=== PATIENT | male | born 1960 | race Caucasian/White ===

== ENCOUNTER 2016-06-07 08:45 | Emergency (ER) | payer OTHER ==
[~2016-06-07] VITALS: Ht 177.8 cm; Wt 113.4 kg
[~2016-06-07 08:45] MED LIST: ATARAX25 MG PO; BACTRIM DS 8001 TA1 PO; BP MED; FLEXERIL5 MG PO; FLOMAX0.4 MG PO; FLONASE 0.05% 121 EA NAS; LISINOPRIL20 MG PO; MEDROL DOSEPAK4 MG PO; MOTRIN800 MG PO; PREDNICOT20 MG PO; ULTRAM50 MG PO; VICODIN 5/500 505 MG PO; VICODIN 500 MG-1 TAB PO; VOLTAREN50 M1 PO
[2016-06-07 09:04] VITALS: BP 145/85
[2016-06-07] MEDS ORDERED: PENICILLIN-VK500 MG PO (09:18)
[2016-06-07] MEDS ORDERED: PREDNISONE10 MG PO (09:18)
[2016-06-07] MEDS ORDERED: Peridex 473 ML473 ML PO (09:28)
== END 2016-06-07 09:54 | disposition home or self-care (01) ==
LOC: ED 08:45
DX: K08.89 Other specified disorders of teeth and supporting structures (principal); L40.9 Psoriasis, unspecified; F17.200 Nicotine dependence, unspecified, uncomplicated; Z88.6 Allergy status to analgesic agent; Z79.899 Other long term (current) drug therapy

== ENCOUNTER 2021-08-18 17:47 | Emergency (ER) | payer OTHER ==
[~2021-08-18] VITALS: Ht 177.8 cm; Wt 108.4 kg
[~2021-08-18 17:47] MED LIST changes: +PENICILLIN-VK500 MG PO; +PREDNISONE10 MG PO; +Peridex 473 ML473 ML PO
[2021-08-18 17:55] VITALS: BP 128/73
[2021-08-18 18:21] LABS: BASO # 0.1 10*3/uL (0.0-0.1); BASO % 0.4 % (0.0-1.0); EOS # 0.1 10*3/uL (0.0-0.4); EOS % 0.8 % (1.0-4.0); HEMATOCRIT 46.5 % (42.0-52.0); LYMPH # 2.1 10*3/uL (1.3-4.4); LYMPH % 14.9 % (27.0-41.0); MEAN CELL VOLUME 91.5 fl (80.0-94.0); MEAN CORPUSCULAR HGB 31.3 pg (27.0-31.0); MEAN CORPUSCULAR HGB CONC 34.2 g/dl (33.0-37.0); MEAN PLATELET VOLUME 9.6 fl (9.6-12.3); MONO # 1.2 10*3/uL (0.1-1.0); MONO % 8.7 % (3.0-9.0); NEUT # 10.7 10*3/uL (2.3-7.9); NEUT % 74.9 % (47.0-73.0); PLATELET COUNT AUTOMATED 288 10*3/uL (130-400); RED BLOOD COUNT 5.08 10*6/uL (4.50-5.90); RED CELL DISTRI WIDTH 12.7 % (0-14.5); WHITE BLOOD COUNT 14.3 10*3/uL (4.8-10.8)
[2021-08-18 18:40] LABS: ALKALINE PHOSPHATASE 64 U/L (45-117); BUN 19 mg/dl (7-24); CHLORIDE 108 mmol/L (98-107); CREATININE 0.89 mg/dL (0.70-1.30); LIPASE 69 U/L (73-393); POTASSIUM 3.8 mmol/L (3.5-5.1); SGOT/AST 14 IU/L (3-35); SGPT/ALT 15 U/L (12-78); SODIUM 138 mmol/L (136-145); TOTAL PROTEIN 7.7 gm/dL (6.4-8.2)
[2021-08-18 18:51] LABS: ACT PARTIAL THROMBO TIME 33.9 SECONDS (20.0-32.1)
[2021-08-18] MEDS ORDERED: VIBRAMYCIN100 MG PO (21:41)
[2021-08-18] MEDS ORDERED: PREDNISONE20 M1 PO (21:41)
== END 2021-08-18 21:15 | disposition home or self-care (01) ==
LOC: ED 17:47
PROVIDERS: Emergency Medicine
DX: J45.901 Unspecified asthma with (acute) exacerbation (principal); Z98.890 Other specified postprocedural states; Z79.899 Other long term (current) drug therapy; Z88.5 Allergy status to narcotic agent

== ENCOUNTER 2021-12-04 10:34 | Emergency (ER) | payer OTHER ==
[~2021-12-04] VITALS: Ht 177.8 cm; Wt 113.4 kg
[~2021-12-04 10:34] MED LIST changes: +PREDNISONE20 M1 PO; +VIBRAMYCIN100 MG PO
[2021-12-04 10:46] VITALS: BP 119/73
[2021-12-04] MEDS ORDERED: Motrin,Rufen800 MG PO (11:37)
[2021-12-04] MEDS ORDERED: ULTRAM50 MG PO (11:40)
== END 2021-12-04 11:52 | disposition home or self-care (01) ==
LOC: ED 10:34
DX: M79.632 Pain in left forearm (principal); Z88.8 Allergy status to other drugs, medicaments and biological substances; X50.9XXA Other and unspecified overexertion or strenuous movements or postures, initial encounter; Y93.89 Activity, other specified; Y92.89 Other specified places as the place of occurrence of the external cause; Y99.8 Other external cause status